=== PATIENT | female | born 1930 | race Caucasian/White ===

== ENCOUNTER 2019-07-21 05:05 | Emergency (ER) | payer MEDICARE, MEDICAID ==
[~2019-07-21] VITALS: Ht 160 cm; Wt 43.1 kg
[2019-07-21] MEDS ORDERED: NS 1000ML 1,000 ML ONE (05:07)
[2019-07-21] MEDS: NS 1000ML 1,000 ML IV STA (05:23)
--- NOTE | 2019-07-21 05:25 | NUR ---
XRAY CALLED CALLED [facility] FOR XR CHEST
[2019-07-21 05:30] VITALS: BP 128/70
[2019-07-21 05:35] LABS: BASOPHIL % 0.2 % (0.0-0.2); LYMPHOCYTES # 0.75 10^3/uL1 (1.0-4.8); LYMPHOCYTES % 8.2 % (24.0-44.0); MEAN CORP HGB 32.8 pg (26-34); MONOCYTES # 0.6 10^3/uL (0.3-0.8); MONOCYTES % 6.1 % (5.0-12.0); NEUTROPHIL # 7.8 10^3/uL (1.8-7.7); NEUTROPHILS % 84.8 % (41.0-85.0); PLATELET COUNT 212 10^3/uL (150-400); RED CELL DISTRIBUTION WIDTH 13.8 % (11.5-14.5)
--- NOTE | 2019-07-21 05:43 | ER.PDOC ---
General Chief Complaint: Requesting Medical Care Stated Complaint: DYSPNEA Time seen by MD: 05:38 Source: EMS, EMS notes reviewed, [facility] records Exam Limitations: clinical condition History of Present Illness Initial Comments Worsening SOB for 2 days, patient has COVID-19. Severity: moderate Prior Episodes/Possible Cause: occasional episodes Associated Symptoms: cough Allergies: Coded Allergies: Sulfa (Sulfonamide Antibiotics) (Verified Allergy, Unknown, 07/21/19) Home Meds Reported Medications Hydrocodone Bit/Acetaminophen (HYDROCODON-ACETAMINOPHEN 5-300) 1 Each Tablet, 1 EACH PO Q6, TAB 07/21/19 Docusate Sodium (DOCUSATE SODIUM) 100 Mg Capsule, 1 CAP PO BID for constipation for 7 Days, #14 CAP 0 Refills 07/21/19 Ciprofloxacin Hcl (CIPROFLOXACIN HCL) 500 Mg Tablet, 1 TAB PO BID, #14 TAB 07/21/19 Sodium Bicarbonate (SODIUM BICARBONATE) 650 Mg Tablet, 325 MG PO DAILY24, TAB 07/21/19 Risperidone (RISPERDAL) 0.5 Mg Tablet, 1 TAB PO HS for 30 Days, #30 TAB 0 Refills 07/21/19 Pantoprazole Sodium (PANTOPRAZOLE SODIUM) 40 Mg Tablet.dr, 1 TAB PO DAILY, #30 TAB 3 Refills 07/21/19 Mirtazapine (MIRTAZAPINE) 15 Mg Tablet, 1 TAB PO HS, #30 TAB 3 Refills 07/21/19 Polyethylene Glycol 3350 (MIRALAX) 17 Gm Powd.pack, 1 PKT PO QD for constipation for 2 Days, #2 PKT 0 Refills dissolve in water 07/21/19 Metoprolol Succinate (METOPROLOL SUCCINATE) 25 Mg Tab.er.24h, 1 TAB PO DAILY, #30 TAB 5 Refills 07/21/19 Levothyroxine Sodium (LEVOTHYROXINE SODIUM) 100 Mcg Tablet, 1 TAB PO DAILY, #30 TAB 5 Refills 07/21/19 Ferrous Sulfate (IRON) 325 Mg Tablet, 325 MG PO DAILY24, TAB 07/21/19 Furosemide (FUROSEMIDE) 20 Mg Tablet, 1 TAB PO DAILY, #90 TAB 1 Refill 07/21/19 Digoxin (DIGOXIN) 125 Mcg Tablet, 1 TAB PO DAILY, #30 TAB 5 Refills 07/21/19 Cetirizine Hcl (CETIRIZINE HCL) 5 Mg Tablet, 5 MG PO DAILY24, TAB 07/21/19 Atorvastatin 10MG (LIPITOR 10MG) 10 Mg Tablet, 1 TAB PO HS, #90 TAB 1 Refill 07/21/19 Aspirin (ASPIR 81) 81 Mg Tablet.dr, 1 TAB PO QD for 30 Days, #30 TAB 0 Refills 07/21/19 Zinc Sulfate (ZINC SULFATE) 220 Mg Tablet, 1 TAB PO QD for 30 Days, #30 TAB 0 Refills 07/21/19 Past Medical History Medical History: COPD Review of Systems Constitutional: no symptoms reported Respiratory: see HPI Cardiovascular: no symptoms reported Gastrointestinal: no symptoms reported Genitourinary: no symptoms reported All Other Systems: Reviewed and Negative Physical Exam General Appearance: No Apparent Distress, WD/WN Neck: Non-Tender, Full Range of Motion, Supple, Normal Inspection Respiratory: chest non-tender, lungs clear, normal breath sounds, no respirato ry distress, no accessory muscle use Cardiovascular: Normal Peripheral Pulses, Regular Rate, Rhythm, No Edema, No Gallop, No JVD, No Murmur, Tachycardia Gastrointestinal: Normal Bowel Sounds, No Organomegaly, No Pulsatile Mass, Non Tender, Soft Extremities: Normal Range of Motion, Non-Tender, Normal Inspection, No Pedal Edema, No Calf Tenderness, Normal Capillary Refill 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 (07/21/19 05:22) Blood Culture (07/21/19 05:22) Ekg-Routine (07/21/19 05:22) Xr Chest 1v (07/21/19 05:22) Lactic Acid(Ml) (07/21/19 05:22) 0.9 % Sodium Chloride (Ns 1000ml) (07/21/19 05:22) Albuterol Sulfate (Ventolin Hfa) (07/21/19 05:41) Vital Signs Date Time Temp Pulse Resp B/P (MAP) Pulse Ox O2 Delivery O2 Flow Rate FiO2 07/21/19 05:30 98.7 63 20 96 07/21/19 05:30 98.7 63 20 128/70 (89) 96 Room Air 07/21/19 05:30 98.7 63 20 Administered Medications Medications (Trade) Dose Ordered Sig/Antonio Route PRN Reason Start Time Stop Time Status Last Admin Dose Admin Sodium Chloride 1,000 ml @ 1,200 mls/hr Q50M STAT IV 07/21/19 05:22 07/21/19 06:11 DC 07/21/19 05:23 1,200 MLS/HR Laboratory Tests Test 07/21/19 05:19 White Blood Count 9.2 10^3/uL (4.5-11.0) Red Blood Count 3.81 10^6/uL (4.00-5.20) L Hemoglobin 12.5 g/dL (12.0-15.0) Hematocrit 39.7 % (36.0-46.0) Mean Corpuscular Volume 104.2 fL (78-100) H Mean Corpuscular Hemoglobin 32.8 pg (26-34) Mean Corpuscular Hemoglobin Concent 31.5 g/dL (33-36.5) L Red Cell Distribution Width 13.8 % (11.5-14.5) Platelet Count 212 10^3/uL (150-400) Mean Platelet Volume 10.7 fL (7.8-11.0) Neutrophils (%) (Auto) 84.8 % (41.0-85.0) Lymphocytes (%) (Auto) 8.2 % (24.0-44.0) L Monocytes (%) (Auto) 6.1 % (5.0-12.0) Neutrophils # (Auto) 7.8 10^3/uL (1.8-7.7) H Lymphocytes # (Auto) 0.75 10^3/uL1 (1.0-4.8) L Monocytes # (Auto) 0.6 10^3/uL (0.3-0.8) Absolute Immature Granulocyte (auto 0.06 10^3 u/L (0-2) Absolute Eosinophils (auto) 0.0 10^3/uL (0.0-0.2) Immature Granulocytes % 0.70 % (0.00-0.50) H Eosinophils % 0.0 % (0.0-5.0) Basophils % 0.2 % (0.0-0.2) Basophils # 0.0 10^3/uL (0.0-0.1) Prothrombin Time 9.8 SEC (9.3-11.3) Prothrombin Time INR (Non-Therap) 1.0 Activated Partial Thromboplast Time 28.5 SEC (24.67-30.72) D-Dimer 1.51 mg/L (0.19-0.49) *H Sodium Level 145 mmol/L (132-145) Potassium Level 3.4 mmol/L (3.6-5.2) L Chloride Level 105.0 mmol/L (96-109) Carbon Dioxide Level 31.1 mmol/L (20.0-32) Anion Gap 12.3 Blood Urea Nitrogen 19 mg/dL (7-18) H Creatinine 0.85 mg/dL (0.59-1.40) Estimated GFR () 76.2 (>/=60) Est GFR (CKD-EPI)(Non-Afr Indonesian) 63.0 (>/=60) BUN/Creatinine Ratio 22.0 Glucose Level 109 mg/dL (70-110) Lactic Acid Level 1.8 mmol/L (0.5-1.9) Calcium Level 9.1 mg/dL (8.4-10.5) Total Bilirubin 0.4 mg/dL (0.2-1.0) Aspartate Amino Transferase (AST) 25 U/L (0-35) Alanine Aminotransferase (ALT) 15 U/L (12-78) Alkaline Phosphatase 116 U/L (50-136) Total Creatine Kinase 67 U/L (26-192) Creatine Kinase MB 0.6 ng/mL (0.5-3.6) Troponin I 0.03 ng/mL (0.00-0.05) Pro-B-Type Natriuretic Peptide 1246 pg/mL (0-450) H Total Protein 7.9 g/dL (6.4-8.2) Albumin 3.4 g/dL (3.4-5.0) Globulin 4.5 Progress Progress CXR: Persistent density in the right lung base which was present on 05/14/2019. Streaky infiltrate or atelectasis superimposed upon pleural/parenchymal scarring cannot be excluded. Discussed with Dr. Min, patient's labs show nothing that warrant admission. Her vital signs are stable. No additional benefit admitting her. Called care home and this is her baseline. EKG/XRAY/CT/US EKG: NSR Departure Time of Disposition: 06:57 Disposition: 01 HOME, SELF-CARE Impression: Primary Impression: COVID-19 virus infection Condition: Stable Additional Instructions: Z pack Prednisone Continue breathing treatment at home F/U with care home Provider. Duration or Time Spent with Pa: 60 min MIKEL ORLANDO MD July 21, 2019 05:43
[2019-07-21] MEDS ORDERED: FURO20TA3 PO (06:00)
[2019-07-21] MEDS ORDERED: ZINC220T3 PO (06:00)
[2019-07-21] MEDS ORDERED: POLY17PO5 PO (06:00)
[2019-07-21] MEDS ORDERED: RISP0.5T24 PO (06:00)
[2019-07-21] MEDS ORDERED: SODI650T PO (06:00)
[2019-07-21] MEDS ORDERED: HYDR-2370 PO (06:00)
[2019-07-21] MEDS ORDERED: ATOR10TA PO (06:00)
[2019-07-21] MEDS ORDERED: PANT40TA5 PO (06:00)
[2019-07-21] MEDS ORDERED: FERR-39 PO (06:00)
[2019-07-21] MEDS ORDERED: METO-236 PO (06:00)
[2019-07-21] MEDS ORDERED: DOCU100C28 PO (06:00)
[2019-07-21] MEDS ORDERED: CETI5TAB3 PO (06:00)
[2019-07-21] MEDS ORDERED: MIRT15TA4 PO (06:00)
[2019-07-21] MEDS ORDERED: LEVO100T5 PO (06:00)
[2019-07-21] MEDS ORDERED: DIGO125T3 PO (06:00)
[2019-07-21] MEDS ORDERED: ASPI-484 PO (06:00)
[2019-07-21] MEDS ORDERED: CIPR500T3 PO (06:00)
[2019-07-21] MEDS: VENTOLIN HFA IH STA (06:00)
--- NOTE | 2019-07-21 06:05 | DIREP ---
PROCEDURE:CHEST 1 VIEW COMPARISON:[facility], CR, XRAY CHEST SINGLE VW, 05/14/2019, 07:58 AM. [facility], CR, XRAY CHEST SINGLE VW, 07/15/2019, 08:26 PM. INDICATIONS:Dyspnea FINDINGS: LUNGS/PLEURA:Density in the right lung base was present on exam dating back to 05/14/2019 most likely representing pleural/parenchymal scarring, however, some degree of superimposed pneumonia cannot be excluded in the right lung base with certainty. VASCULATURE:Normal. Unremarkable pulmonary vasculature. Atherosclerotic disease of the thoracic aorta is noted. CARDIAC:Normal. No cardiac silhouette abnormality or cardiomegaly. MEDIASTINUM:Normal. No visible mass or adenopathy. BONES:Normal. No fracture or visible bony lesion. OTHER:Negative. CONCLUSION: 1. Persistent density in the right lung base which was present on 05/14/2019. Streaky infiltrate or atelectasis superimposed upon pleural/parenchymal scarring cannot be excluded. Dictated by: Jeff Marshall M.D. on 07/21/2019 at 06:02 AM
[2019-07-21 06:11] LABS: CALCIUM 9.1 mg/dL (8.4-10.5); CARBON DIOXIDE 31.1 mmol/L (20.0-32)
--- NOTE | 2019-07-21 06:24 | NUR ---
[facility] IV IV #2, 20G RIGHT FOREARM
--- NOTE | 2019-07-21 06:29 | NUR ---
DR ANDREWS EDP ON PHONE WITH DARRYL FOR POSSIBLE ADMISSION
--- NOTE | 2019-07-21 06:45 | NUR ---
DARRYL DOCTOR JOHANNY ATTEMPTED SEVERAL TIMES TO CONTACT DOCTOR DARRYL WITH NO ANSWER, LEFT MESSAGE.
[2019-07-21 06:46] VITALS: BP 119/52
--- NOTE | 2019-07-21 06:47 | NUR ---
DARRYL BILLY MBA ON THE PHONE WITH DOCTOR ANDREWS AT THIS TIME
--- NOTE | 2019-07-21 06:56 | NUR ---
STATUS AFTER DOCTOR JOHANNY SPOKE WITH DOCTOR ANDREWS, THEY BOTH DECIDED PATIENT IS GOOD TO GO BACK TO THE NURSING FACILITY.
--- NOTE | 2019-07-21 07:00 | NUR ---
[facility] NOTIFIED OF DISCHARGE
[2019-07-21 08:01] VITALS: BP 116/48
--- NOTE | 2019-07-21 09:36 | NUR ---
STATUS PATIENT INCONTINENT OF BOWEL AND BLADDER, PERICARE PROVIDED, PATIENT TOLERATED WELL.
[2019-07-21 10:06] VITALS: BP 94/46
--- NOTE | 2019-07-21 10:38 | NUR ---
[facility] HERE FOR PATIENT. PATIENT ASSISTED TO W/C AND TO AMBULANCE BAY TO MEET STAFF, NO DISTRESS NOTED.
--- NOTE | 2019-07-21 15:33 | PCM.EKG ---
[facility] Test Date: 2019-07-21 Test Time: 05:31:38 Pat Name: DANIEL AUGUSTIN Department: Patient ID: [id number] Room: Gender: F Certified Registered Nurse Practitioner: LIZA : [id number] Requested By: MIKEL ORLANDO Order Number: [id number] Reading MD: Measurements Intervals Reform Rate: 81 P: 53 AK: 83 QRS: 83 QRSD: 84 T: -83 QT: 280 QTc: 325 Interpretive Statements Sinus rhythm Supraventricular bigeminy Short AK interval Borderline right axis deviation Repol abnrm suggests ischemia, diffuse leads Minimal ST elevation, lateral leads No previous ECG available for comparison Please click the below link to view image of tracing.
[2019-07-22 01:47] LABS: ABG PCO2 36.6 mmHg (35.0-45.0); ABG PH 7.488 (7.350-7.450); HCO3act 27.1 mmol/L (22.0-26.0); pO2 76.3 mmHg (80.0-100.0)
[2019-07-22 01:48] LABS: BE(B) 3.7 mmol/L (-2.0-2.0)
[2019-07-23] MEDS ORDERED: AZIT250T14 PO (06:24)
[2019-07-23] MEDS ORDERED: ACET325T12 PO (14:42)
[2019-07-23] MEDS ORDERED: [UNRECOGNIZED DRUG - CODE] PO (14:42)
[2019-07-23] MEDS ORDERED: POLY17PO5 PO (14:42)
[2019-07-23] MEDS ORDERED: SODI650T PO (14:42)
[2019-07-23] MEDS ORDERED: ASCO500T4 PO (14:42)
== END 2019-07-21 08:20 | disposition home or self-care (01) ==
LOC: ER 05:05 → EDBD 05:05 → ER 08:20
DX: J44.9 Chronic obstructive pulmonary disease, unspecified (principal); U07.1 COVID-19; Z79.82 Long term (current) use of aspirin; Z79.899 Other long term (current) drug therapy; Z88.2 Allergy status to sulfonamides
CPT/HCPCS: 36415; 36600; 71045; 80053; 82550; 82553; 82803; 83605; 83880; 84484; 85025; 85379; 85610; 85730; 87040 ×2; 93005; 99285; J7030; 87077; 87186